=== PATIENT | female | born 1985 | race Caucasian/White ===

== ENCOUNTER 2017-10-18 08:30 | Outpatient (CLI) | payer OTHER ==
[~2017-10-18] VITALS: Ht 162.6 cm; Wt 65.3 kg
[~2017-10-18 08:30] MED LIST: ACEB200C PO; DCS100C PO; IBP600T1 PO; OXYC-12 PO; PREN1TAB39 PO
[2017-10-18] MEDS ORDERED: MULT1TAB69 PO (08:54)
[2017-10-18] MEDS ORDERED: LOSA100T28 PO (08:54)
== END 2017-10-18 09:09 ==
LOC: PREOP 08:30
PROVIDERS: ATTEND Surgery
DX: Z01.818 Encounter for other preprocedural examination (principal); K62.5 Hemorrhage of anus and rectum

== ENCOUNTER 2017-10-24 08:11 | Day surgery (SDC) | payer OTHER ==
[~2017-10-24] VITALS: Ht 162.6 cm; Wt 65.3 kg
[~2017-10-24 08:11] MED LIST changes: +LOSA100T28 PO; +MULT1TAB69 PO
--- OUTSIDE RECORDS SUMMARY | 2017-10-24 08:14 | XMS REPORT | Continuity of Care Document ---
Author Author [facility] Organization [facility] Address Unknown Phone Unavailable Allergies Active Description Code Type Severity Reaction Onset Reported/Identified Relationship to Patient Clinical Status Yes morphine [id number] Drug Allergy Unknown RASH...CAN TAKE 06/24/2010 Medications There is no data. Problems Date Dx Coded Attending Type Code Diagnosis Diagnosed By 11/30/2013 JOSE ALBERTO MONTGOMERY DO Ot 564.4 POSTOP GI FUNCT DIS NEC 11/30/2013 JOSE ALBERTO MONTGOMERY DO Ot 642.71 TOX W OLD HYPERTEN-DELIV 11/30/2013 JOSE ALBERTO MONTGOMERY DO Ot 648.91 OTH CURR COND-DELIVERED 11/30/2013 JOSE ALBERTO MONTGOMERY DO Ot 659.71 ABN DEL FET HT RT/RHYTHM,W OR W/O MENTIO 11/30/2013 JOSE ALBERTO MONTGOMERY DO Ot 663.31 CORD ENTANGLE NEC-DELIV 11/30/2013 JOSE ALBERTO MONTGOMERY DO Ot V06.1 [id number], COMBINED [ 11/30/2013 JOSE ALBERTO MONTGOMERY DO Ot V27.0 DELIVER-SINGLE LIVEBORN 11/30/2013 JOSE ALBERTO MONTGOMERY DO Ot V45.72 ACQRD ABSENCE INTESTINE - LARGE/SMALL 10/18/2017 FELISA CORTES MD Ot K62.5 HEMORRHAGE OF ANUS AND RECTUM 10/18/2017 FELISA CORTES MD Ot Z01.818 ENCOUNTER FOR OTHER PREPROCEDURAL EXAMIN 10/18/2017 FELISA CORTES MD Ot K62.5 HEMORRHAGE OF ANUS AND RECTUM 10/18/2017 FELISA CORTES MD Ot Z01.818 ENCOUNTER FOR OTHER PREPROCEDURAL EXAMIN Procedures Code Description Performed By Performed On 72.79 VACUUM EXTRACT DEL NEC 11/28/2013 Results There is no data. Encounters ACCT No. Visit Date/Time Discharge Status Pt. Type Provider Facility Loc./Unit Complaint [id number] 10/18/2017 08:30:00 10/18/2017 09:09:00 DIS Outpatient FELISA CORTES MD [facility] PREOP FLEX SIG [id number] 11/28/2013 13:52:00 11/30/2013 10:50:00 DIS Inpatient JOSE ALBERTO MONTGOMERY DO [facility] WS INDUCED HYPERTENSION [id number] 10/24/2017 09:00:00 PEN Preadmit FELISA CORTES MD [facility] ENDO RECTAL BLEEDING 04/29/20 09/21/2017 16:16:54 09/21/2017 23:59:59 CLS Outpatient Renee Singh
[2017-10-24] MEDS ORDERED: NS IV 500 ML 500 ML ONE (08:18)
[2017-10-24 08:25] VITALS: BP 122/88
[2017-10-24] MEDS ORDERED: NS IV 500 ML 500 ML IV PRN (08:27)
--- NOTE | 2017-10-24 08:40 | Conscious Sedation/ASA ---
Conscious Sedation Pre-Proced Time Reviewed: 08:39 ASA Class: 2 Airway Mallampati Classification: ([place] appropriate class) I. II. III, IV Lungs Heart ASA score ASA 1: a normal healthy patient ASA 2: a patient with a mild systemic disease (mid diabetes, controlled hypertension, obesity ASA 3: a patient with a severe systemic disease that limits activity (angina , COPD, prior Myocardial infarction) ASA 4: a patient with an incapacitating disease that is a constant threat to life (CHF, renal failure) ASA 5: a moribund patient not expected to survive 24 hrs. (ruptured aneurysm) ASA 6: a declared brain patient whose organs are being harvested. For emergent operations, add the letter E after the classification Grade 1 Sedation Plan: Discussed options with patient/fam Note The patient is an appropriate candidate to undergo the planned procedure, sedation, and anesthesia. The patient immediately re-assessed prior to indication. FELISA CORTES MD Oct 24, 2017 8:40 am
[2017-10-24] MEDS ORDERED: MIDAZOLAM 2 MG/2 ML (VERSED) VIAL ONE ×2 (08:56→08:57)
[2017-10-24] MEDS ORDERED: fentaNYL INJECTION 100 MCG/2 ML AMP ONE (08:56)
[2017-10-24] MEDS: fentaNYL INJECTION 100 MCG/2 ML AMP IVP PRN ×2 (09:03→09:06)
[2017-10-24] MEDS: MIDAZOLAM 2 MG/2 ML (VERSED) VIAL IVP PRN ×2 (09:05→09:07)
--- NOTE | 2017-10-24 09:31 | Endo Procedure Record ---
Endo Procedure Report Date of Procedure Last Colonoscopy: Yes (unsure) Oct 24, 2017 Surgeon (s) FELISA CORTES MD Post Procedure/Op Diagnosis Very small, sessile polyps in the distal small bowel, proximal to the ileorectal anastomosis Procedure Performed Flexible sigmoidoscopy with enteroscopy Hot biopsy polypectomy of small bowel polyps Description of Procedure Anesthesia Type: Conscious Sedation Specimen(s) collected/removed small bowel polyps Description of the Procedure Indication for the procedure: This lady had undergone total colectomy with ileorectal anastomosis, to manage colonic inertia about 10 years ago. I have reviewed the operative and pathology reports and there was no concerning lesion in the colon. She came in for a limited endoscopic examination of the rectum and possibly the small bowel, to investigate intermittent and infrequent rectal bleeding. Informed consent was obtained after reviewing the procedure in detail. Description of the procedure: She was placed in left lateral decubitus position and her vital signs were monitored. Conscious sedation was achieved using Versed and fentanyl. Digital rectal examination was unremarkable. The colonoscope was then introduced into the rectum and advanced past the anastomosis into the distal 30 cm of the small bowel. Findings: A very small degree of internal hemorrhoids. Multiple, sessile, diminutive polyps in the distal small bowel for about 10 cm from the ileo-rectal anastomosis. These are most likely innocuous. A few of them were excised with hot biopsy forceps. She tolerated the procedure well and was taken back to the nursing area in a stable condition. Impression: Previous total colectomy with ileorectal anastomosis. Intermittent rectal bleeding, possibly due to hemorrhoids. Incidental, diminutive small bowel polyps excised. Copies To: CHIKIS MAR XAVIER M MD Oct 24, 2017 9:31 am
--- NOTE | 2017-10-24 09:32 | Discharge Inst-Simple/Standard ---
Discharge Inst-Standard Discharge Medications New, Converted or Re-Newed RX: Other Patient Instructions/Follow Up Plan of Care/Instructions/FU: We shall call with pathology reports. To call us if there are any concerns Activity as Tolerated: Yes Discharge Diet: No Restrictions FELISA CORTES MD Oct 24, 2017 9:32 am
[2017-10-24 09:55] VITALS: BP 118/76
[2017-10-24 10:15] VITALS: BP 121/83
[2017-10-24 14:36] VITALS: BP 121/83
== END 2017-10-24 10:15 | disposition home or self-care (01) ==
LOC: ENDO 08:11
PROVIDERS: ATTEND Surgery
DX: K63.89 Other specified diseases of intestine (principal); I10 Essential (primary) hypertension
CPT/HCPCS: 84703

== ENCOUNTER 2017-10-25 10:32 | Inpatient (IN) | payer OTHER ==
[~2017-10-25] VITALS: Ht 162.6 cm; Wt 65.3 kg
[~2017-10-25 10:32] MED LIST changes: -IOHEXOL 350 MG/ML 100 ML (OMNIPAQUE 350) VIAL IV ONE; -LACTATED RINGERS 1,000 ML IV ONE; -LACTATED RINGERS 1,000 ML IV SCH; -NS 250 ML (IVPB) BAG IV ONE; -ONDANSETRON 4 MG/2 ML (SDV) Z0FRAN IVP ONE; -ONDANSETRON 4 MG/2 ML (SDV) Z0FRAN ONE; -RECEIVED CONTRAST (Hold Metformin) IV SCH; -fentaNYL INJECTION 100 MCG/2 ML AMP IVP ONE; -fentaNYL INJECTION 100 MCG/2 ML AMP ONE
--- OUTSIDE RECORDS SUMMARY | 2017-10-25 12:56 | XMS REPORT | Continuity of Care Document ---
Author Author [facility] Organization [facility] Address Unknown Phone Unavailable Allergies Active Description Code Type Severity Reaction Onset Reported/Identified Relationship to Patient Clinical Status Yes morphine [id number] Drug Allergy Unknown RASH...CAN TAKE 06/24/2010 Medications [...] 11/30/2013 JOSE ALBERTO MONTGOMERY DO Ot V06.1 [id number], COMBINED [ 11/30/2013 JOSE ALBERTO MONTGOMERY DO [...] Status Pt. Type Provider Facility Loc./Unit Complaint [id number] 10/18/2017 08:30:00 10/18/2017 09:09:00 DIS Outpatient FELISA CORTES MD [facility] PREOP FLEX SIG [id number] 11/28/2013 13:52:00 11/30/2013 10:50:00 DIS Inpatient JOSE ALBERTO MONTGOMERY DO [facility] WS INDUCED HYPERTENSION [id number] 10/24/2017 09:00:00 PEN Preadmit FELISA CORTES MD [facility] ENDO RECTAL BLEEDING 04/29/20 09/21/2017 16:16:54 09/21/2017 23:59:59 CLS Outpatient Renee Singh
[2017-10-25] MEDS ORDERED: LACTATED RINGERS 1,000 ML IV ONE (13:14)
[2017-10-25] MEDS ORDERED: NS IV 1000 ML 1,000 ML IV SCH (13:15)
[2017-10-25] MEDS ORDERED: fentaNYL INJECTION 100 MCG/2 ML AMP IVP PRN ×2 (13:15→17:00)
[2017-10-25] MEDS ORDERED: LACTATED RINGERS 1,000 ML IV SCH (13:15)
[2017-10-25] MEDS ORDERED: PROPOFOL INJECTION 50 ML IV ONE (13:27)
[2017-10-25] MEDS ORDERED: ONDANSETRON 4 MG/2 ML (SDV) Z0FRAN ONE ×2 (13:27→15:54)
[2017-10-25] MEDS ORDERED: LIDOCAINE 2% 20 ML (XYLOCAINE) VIAL ONE (13:27)
[2017-10-25] MEDS ORDERED: fentaNYL INJECTION 100 MCG/2 ML AMP ONE ×3 (13:27→16:00)
[2017-10-25] MEDS ORDERED: ROCURONIUM 10 MG/ML 5 ML SYRINGE IV ONE (13:27)
[2017-10-25] MEDS ORDERED: CATHETER FLUSH 10 ML SYR IV PRN (13:30)
[2017-10-25] MEDS ORDERED: MIDAZOLAM 2 MG/2 ML (VERSED) VIAL ONE (13:31)
--- NOTE | 2017-10-25 13:39 | History & Physicial ---
History of Present Illness History of Present Illness Reason for visit/HPI Acute onset of lower abdominal pain this am. CT shows pneumoperitoneum, possibly due to small bowel perforation Date of Admission Oct 25, 2017 at 12:52 pm Date Seen by Provider: Oct 25, 2017 Time Seen by Provider: 10:55 I consulted on this patient on 10/25/17 13:34 Attending Physician Felisa Hadley MD Admitting Physician Renee Singh DO Consult Allergies and Home Medications Allergies Coded Allergies: morphine (Verified Allergy, Unknown, RASH...CAN TAKE PERCOCET, 06/24/10) PER NURSE AVIS WING, PATIENT CAN TAKE PERCOCET Home Medications Losartan Potassium 100 Mg Tablet, 100 MG PO DAILY, (Reported) Multivitamin 1 Each Tablet, 1 EACH PO DAILY, (Reported) Patient Home Medication List Home Medication List Reviewed: Yes Past Bayrmdf-Lfxzrl-Dqlqde Hx Patient Social History Marrital Status: Employed/Student: employed Alcohol Use: Occasionally Uses Number of Drinks Today: 2 Alcohol Beverage of Choice: Beer Recreational Drug Use: No Smoking Status: Never a Smoker Physical Abuse Screen: No Sexual Abuse: No Recent Foreign Travel: No Contact w/other who traveled: No Recent Hopitalizations: No Recent Infectious Disease Expo: No Immunizations Up To Date Tetanus Booster (TDap): Unknown Pediatric: Yes Date of Influenza Vaccine: May 17, 2013 Seasonal Allergies Seasonal Allergies: Yes (mild) Surgeries Yes (Colectomy 2008, right ankle 2004, breast augmentation-2014) Bowel Surgery Respiratory No Cardiovascular Yes Hypertension Neurological No Reproductive System Hx Reproductive Disorders: No Sexually Transmitted Disease: No HIV/AIDS: No Female Reproductive Disorders: Denies Genitourinary No Gastrointestinal Yes (Colectomy 2008, rectal bleeding ) Chronic Constipation Musculoskeletal Yes (LIGAMENT REPAIR RIGHT ANKLE 2004) Endocrine History of Endocrine Disorders: No HEENT History of HEENT Disorders: No Loss of Vision: Denies Hearing Impairment: Denies Cancer No Psychosocial History of Psychiatric Problem: No Integumentary History of Skin or Integumenta: No Blood Transfusions History of Blood Disorders: No Adverse Reaction to a Blood Tr: No Family Medical History Family Hx: Alcoholism maternal grandfather Cancer maternal grandfather (LUNG CANCER PROSTATE CANCER) paternal grandmother (SKIN CANCER) paternal grandfather Cataract maternal grandmother Congestive heart failure maternal grandmother Family history: Asthma 19 FATHER (SPORTS INDUCED) G8 SISTER (SPORTS INDUCED) Family history: Hypertension 19 FATHER paternal grandfather Headache 19 MOTHER History of - respiratory disease maternal grandfather (COPD) paternal grandmother (COPD) Hypercholesterolemia 19 FATHER paternal grandmother paternal grandfather Malignant neoplasm of lung maternal grandfather Myocardial infarction paternal grandfather Prostate cancer maternal grandfather No Family History of: Abdominal aortic aneurysm Depew's disease Aphasia Cancer of colon Chest pain Congenital heart disease Cystic fibrosis Dementia Dysphagia Family history: Allergy Family history: Alzheimer's disease Family history: Arthritis Family history: Breast disease Family history: Cardiovascular disease Family history: Coronary thrombosis Family history: Diabetes mellitus Family history: Gastrointestinal disease Family history: Glaucoma Family history: Osteoporosis Family history: Thyroid disorder Hearing loss Heart disease Hereditary disease History of - anemia History of - disorder History of drug abuse Human immunodeficiency virus (HIV) seropositivity Infertile Kidney disease Parkinson's disease Psychotic disorder Seizure disorder Stroke Tuberculosis Visual impairment Constitutional: see HPI EENTM: no symptoms reported Respiratory: no symptoms reported Cardiovascular: no symptoms reported Gastrointestinal: see HPI Genitourinary: no symptoms reported Musculoskeletal: no symptoms reported Skin: no symptoms reported Psychiatric/Neurological: No Symptoms Reported Physical Exam Vital Signs Capillary Refill : General Appearance: Moderate Distress Neck: Normal Inspection Gastrointestinal: Tenderness Rectal: Deferred Extremity: Normal Inspection Neurologic/Psychiatric: Alert, Oriented x3 Skin: Warm/Dry Assessment/Plan Assessment and Plan Lady with acute abdominal pain due to perforation of hollow viscus, most likely small bowel. Requires intervention with laparoscopic approach/open if required. Discussed in detail. Problems: Admission Diagnosis Admission Status: Inpatient Order (span 2 midnights) Reason for Inpatient Admission: Being prepared for emergent surgery. Needs adequate time for post-operative recovery. Clinical Quality Measures DVT/VTE Risk/Contraindication: Risk Factor Score Per Nursin RFS Level Per Nursing on Admit: 2=Moderate FELISA HADLEY MD Oct 25, 2017 1:39 pm
--- NOTE | 2017-10-25 13:40 | Progress Note-Pre Operative ---
Pre-Operative Progress Note H&P Reviewed The H&P was reviewed, patient examined and no changes noted. Date Seen by Provider: Oct 25, 2017 Time Seen by Provider: 10:55 Date H&P Reviewed: Oct 25, 2017 Time H&P Reviewed: 13:40 Pre-Operative Diagnosis: Pneumoperitoneum FELISA CORTES MD Oct 25, 2017 1:40 pm
[2017-10-25] MEDS ORDERED: ceFAZolin INJECTION 1,000 MG in NS (IVPB) 100 ML IV ONE (13:45)
[2017-10-25] MEDS ORDERED: metroNIDAZOLE 500MG/100ML IVPB 100 ML IV ONE (13:45)
[2017-10-25 13:52] LABS: BASOPHILS % (AUTO) 0 % (0-10); EOSINOPHILS % (AUTO) 0 % (0-10); HEMATOCRIT 38 % (35-52); HEMOGLOBIN 13.2 G/DL (11.5-16.0); LYMPHOCYTES # (AUTO) 0.6 X 10^3 (1.0-4.0); LYMPHOCYTES % (AUTO) 9 % (12-44); MEAN CORPUSCULAR HEMOGLOBIN 30 PG (25-34); MEAN CORPUSCULAR HGB CONC 35 G/DL (32-36); MEAN CORPUSCULAR VOLUME 88 FL (80-99); MEAN PLATELET VOLUME 9.3 FL (7.4-10.4); MONOCYTES # (AUTO) 0.3 X 10^3 (0.0-1.0); MONOCYTES % (AUTO) 4 % (0-12); NEUTROPHILS # (AUTO) 5.8 X 10^3 (1.8-7.8); NEUTROPHILS % (AUTO) 87 % (42-75); PLATELET COUNT 185 10^3/uL (130-400); RED BLOOD COUNT 4.34 10^6/uL (4.35-5.85); RED CELL DISTRIBUTION WIDTH 12.6 % (10.0-14.5); WHITE BLOOD COUNT 6.7 10^3/uL (4.3-11.0)
[2017-10-25] MEDS ORDERED: LACTATED RINGERS 1,000 ML IV PRN ×3 (13:53→16:27)
[2017-10-25] MEDS: LACTATED RINGERS 1,000 ML IV PRN ×5 (13:55→15:39)
[2017-10-25] MEDS ORDERED: BUP/EPI 0.5% 1:200,000 (SENSORCAINE) 30 ML VIAL ONE (13:56)
[2017-10-25] MEDS ORDERED: SCOPOLAMINE 1.5 MG (TRANSDERM-SCOP) PATCH TD ONE (14:00)
[2017-10-25] MEDS ORDERED: ONDANSETRON 4 MG/2 ML (SDV) Z0FRAN IV ONE (14:00)
[2017-10-25] MEDS ORDERED: FAMOTIDINE 20MG/2ML IV (PEPCID) IV ONE (14:00)
[2017-10-25 14:10] LABS: BAND NEUTROPHILS 16 %; BASOPHILS % (MANUAL) 0 %; BUN/CREATININE RATIO 11; CALCIUM 8.9 MG/DL (8.5-10.1); CARBON DIOXIDE 27 MMOL/L (21-32); CHLORIDE 105 MMOL/L (98-107); CREATININE SERUM 0.76 MG/DL (0.60-1.30); EOSINOPHILS % (MANUAL) 0 %; GFR ESTIMATED > 60; GLUCOSE 98 MG/DL (70-105); LYMPHOCYTES % (MANUAL) 13 %; MONOCYTES % (MANUAL) 10 %; NEUTROPHILS % (MANUAL) 61 %; POTASSIUM 3.7 MMOL/L (3.6-5.0); RBC MORPH NORMAL; SODIUM 136 MMOL/L (135-145)
[2017-10-25] MEDS ORDERED: PHENYLEPHRINE 100 MCG/ML 10 ML (ANESTHESIA) SYR ONE (14:26)
[2017-10-25] MEDS ORDERED: morphine INJ 10 MG/ML 1ML (SYR OR VIAL) ONE (15:17)
[2017-10-25] MEDS ORDERED: SEVOFLURANE (ULTANE) 15 ML INHAL SOLN ONE ×3 (15:49→17:01)
[2017-10-25] MEDS ORDERED: SUCCINYLCHOLINE INJ 100 MG/5 ML SYR ONE (15:50)
[2017-10-25] MEDS ORDERED: GLYCOPYRROLATE 0.2 MG/ML (ROBINUL) 2 ML VIAL ONE (15:52)
[2017-10-25] MEDS ORDERED: HYDROmorphone 2 MG/ML VIAL (DILAUDID) ONE (15:52)
[2017-10-25] MEDS ORDERED: NEOSTIGMINE 1 MG/ML 5 ML SYRINGE ONE (15:52)
--- NOTE | 2017-10-25 16:26 | Operative Report ---
Operative Report Date of Procedure/Surgery Oct 25, 2017 Surgeon (s) FELISA CORTES MD Vegetable Farmer (s): N/A Post-Operative Diagnosis Perforation of distal small bowel, 10 cm proximal to the ileorectal anastomosis with enteric contamination Procedure Performed Laparoscopic repair of small bowel perforation Description of Procedure Anesthesia Type: General Estimated blood loss (mL): Minimal Specimen(s) collected/removed None Description of the Procedure Indication for the procedure: This lady presented with an acute abdomen with pneumoperitoneum due to iatrogenic perforation of the small bowel, resulting from endoscopic polypectomy, performed 24 hours ago. She was offered diagnostic laparoscopy to confirm the diagnosis and possibly repair the perforation. Informed consent was obtained after reviewing the operative details and complications of postoperative wound infection, intra-abdominal abscess the potential for conversion to open laparotomy. Description of the procedure: She was placed supine on the operative table and general anesthesia induced using an endotracheal tube. A gram of Ancef and 500 mg of Flagyl were administered intravenously as prophylaxis against wound infection. Sequential compression devices were placed around her legs, to minimize the risk of venous thrombosis. A Santiago catheter was placed to monitor urine output during the perioperative period. Abdomen was prepared and draped in the usual sterile manner. A supraumbilical incision was made and the linea alba incised vertically. A Parada cannula was placed and carbon dioxide insufflated, to an intra-abdominal pressure of 15 mmHg. Anatomy was visualized using the conventional, 30 laparoscope. Enteric contents were found all over the abdomen. In addition, there were some flakes around the right lower quadrant involving the small bowel. Under direct view, I placed an 8 mm trocar over each side of the abdomen , followed by a 12 mm trocar over the left upper quadrant, to facilitate passing the suture into the peritoneal cavity. Enteric contents were suctioned and the small bowel was examined in a retrograde fashion, commencing from the anastomosis in the pelvis. A full- thickness perforation about 2 mm in diameter was found along the distal small bowel, 10 cm proximal to the anastomosis. It was repaired using a first layer of 20V LOC suture and a second layer of Lembert suture with 0 silk.. A 3 cm Pfannenstiel incision was made to facilitate placing a gel point device for wound protection and exteriorize the involved segment of the small bowel with perforation, for satisfactory repair. The rest of the small bowel was examined and found to be intact. The repaired segment was returned back to the peritoneal cavity and pneumoperitoneum reestablished. Abdominal cavity was thoroughly irrigated with 6 L of warm saline. With regard to the Pfannenstiel incision, peritoneum was closed using 3-0 PDS and the fascia with #1 Prolene. Subcutaneous tissue was approximated with 3-0 Vicryl and skin using 4-0 Vicryl, in a subcuticular fashion. The fascia over the supraumbilical incision and the one over the left upper quadrant were closed with #1 Vicryl. Skin incisions were closed using 4-0 Vicryl, in a subcuticular fashion. 0.5 percent Marcaine with epinephrine was infiltrated along the incisions, both pre-preemptively and at the conclusion of the operation She tolerated the procedure well, was extubated in the operating room and taken to the recovery room in a stable condition. Findings of the Procedure See op report Allergies and Home Medications Allergies Coded Allergies: morphine (Verified Allergy, Unknown, RASH...CAN TAKE PERCOCET, 06/24/10) PER NURSE AVIS WING, PATIENT CAN TAKE PERCOCET Home Medications Losartan Potassium 100 Mg Tablet, 100 MG PO DAILY, (Reported) Patient Home Medication List Home Medication List Reviewed: Yes FELISA CORTES MD Oct 25, 2017 4:26 pm
[2017-10-25] MEDS ORDERED: PIPERACILLIN SODIUM/TAZOBACTAM 4.5 GM in NS (IVPB) 100 ML IV SCH (16:30)
[2017-10-25] MEDS ORDERED: metroNIDAZOLE 500MG/100ML IVPB 100 ML IV SCH (16:30)
[2017-10-25] MEDS ORDERED: PIPERACILLIN SODIUM/TAZOBACTAM 4.5 GM in NS (IVPB) 100 ML IV NR (16:45)
[2017-10-25] MEDS ORDERED: HYDROmorphone 2 MG/ML VIAL (DILAUDID) IVP PRN (17:00)
[2017-10-25] MEDS ORDERED: MEPERIDINE (DEMEROL) INJ 50 MG/ML IVP PRN (17:00)
[2017-10-25] MEDS ORDERED: ONDANSETRON 4 MG/2 ML (SDV) Z0FRAN IVP PRN (17:00)
[2017-10-25] MEDS ORDERED: PROMETHAZINE INJ 25 MG/ML (PHENERGAN) AMP IVP PRN (17:00)
[2017-10-25] MEDS: LACTATED RINGERS 1,000 ML IV SCH ×2 (17:05→18:03)
[2017-10-25 17:50] VITALS: BP 116/71
[2017-10-25 19:05] VITALS: BP 120/74
[2017-10-25] MEDS: metroNIDAZOLE 500MG/100ML IVPB 100 ML IV SCH (21:45)
[2017-10-25] MEDS: fentaNYL INJECTION 100 MCG/2 ML AMP IV PRN (22:26)
[2017-10-25] MEDS: PIPERACILLIN SODIUM/TAZOBACTAM 4.5 GM in NS (IVPB) 100 ML IV SCH (23:18)
[2017-10-26 00:07] VITALS: BP 113/67
[2017-10-26] MEDS: LACTATED RINGERS 1,000 ML IV SCH (03:07)
[2017-10-26 04:41] VITALS: BP 107/65
[2017-10-26] MEDS: metroNIDAZOLE 500MG/100ML IVPB 100 ML IV SCH (05:10)
[2017-10-26 05:53] LABS: BASOPHILS % (AUTO) 0 % (0-10); EOSINOPHILS % (AUTO) 0 % (0-10); HEMATOCRIT 33 % (35-52); HEMOGLOBIN 11.1 G/DL (11.5-16.0); LYMPHOCYTES # (AUTO) 0.7 X 10^3 (1.0-4.0); LYMPHOCYTES % (AUTO) 7 % (12-44); MEAN CORPUSCULAR HEMOGLOBIN 30 PG (25-34); MEAN CORPUSCULAR HGB CONC 34 G/DL (32-36); MEAN CORPUSCULAR VOLUME 89 FL (80-99); MEAN PLATELET VOLUME 9.8 FL (7.4-10.4); MONOCYTES # (AUTO) 0.4 X 10^3 (0.0-1.0); MONOCYTES % (AUTO) 4 % (0-12); NEUTROPHILS # (AUTO) 8.6 X 10^3 (1.8-7.8); NEUTROPHILS % (AUTO) 89 % (42-75); PLATELET COUNT 166 10^3/uL (130-400); RED BLOOD COUNT 3.69 10^6/uL (4.35-5.85); RED CELL DISTRIBUTION WIDTH 12.7 % (10.0-14.5); WHITE BLOOD COUNT 9.7 10^3/uL (4.3-11.0)
[2017-10-26 06:05] LABS: BUN/CREATININE RATIO 10; CALCIUM 8.7 MG/DL (8.5-10.1); CARBON DIOXIDE 22 MMOL/L (21-32); CHLORIDE 107 MMOL/L (98-107); CREATININE SERUM 0.93 MG/DL (0.60-1.30); GFR ESTIMATED > 60; GLUCOSE 133 MG/DL (70-105); SODIUM 138 MMOL/L (135-145)
[2017-10-26] MEDS: PIPERACILLIN SODIUM/TAZOBACTAM 4.5 GM in NS (IVPB) 100 ML IV SCH ×3 (06:24→22:43)
--- NOTE | 2017-10-26 07:20 | Anesthesia-General Post-Op ---
General Patient Condition Mental Status/LOC: Same as Preop Cardiovascular: Satisfactory Nausea/Vomiting: Absent Respiratory: Satisfactory Pain: Controlled Complications: Absent Post Op Complications Complications None Follow Up Care/Instructions Patient Instructions None needed. Anesthesia/Patient Condition Patient Condition Patient is doing well, no complaints, stable vital signs, no apparent adverse anesthesia problems. No complications reported per nursing. BIBI TOLENTINO CRNA Oct 26, 2017 07:20
[2017-10-26 08:00] VITALS: BP 114/68
[2017-10-26] MEDS: fentaNYL INJECTION 100 MCG/2 ML AMP IV PRN ×3 (08:51→19:49)
--- NOTE | 2017-10-26 11:33 | Progress Note-Standard ---
Standard Progress Note Progress Notes/Assess & Plan Date Seen by Provider: Oct 26, 2017 Time Seen by Provider: 11:32 Progress/Assessment & Plan Uneventful night. Findings at surgery, intervention details etc. disclosed with the patient. Afebrile and vital signs are stable. Pain control adequate. Passed flatus last night. Incisions dry. That could be advanced and she be discharged soon. Final Diagnosis Post polypectomy small bowel perforation FELISA CORTES MD Oct 26, 2017 11:33
[2017-10-26 11:51] VITALS: BP 105/60
[2017-10-26 15:30] VITALS: BP 132/68
[2017-10-26] MEDS: ENOXAPARIN 40 MG/0.4 ML (LOVENOX) SYR SC SCH (17:11)
--- NOTE | 2017-10-26 18:55 | Consultation ---
History of Present Illness History of Present Illness Patient Consulted On(gina/time) 10/26/17 18:50 Date Seen by Provider: Oct 26, 2017 Time Seen by Provider: 12:45 History of Present Illness This is a 32 year old female with a history of total colectomy who underwent a limited flexible sigmoidoscopy by Dr. Hadley on yesterday due to rectal bleeding. She was found to have polyps which were biopsied and cauterized. However, she sustained a small bowel perforation during one of the polypectomies and had to undergo laparoscopic repair. I am asked to consult for medical management. Allergies and Home Medications Allergies Coded Allergies: morphine (Verified Allergy, Unknown, RASH...CAN TAKE PERCOCET, 06/24/10) PER NURSE AVIS WING, PATIENT CAN TAKE PERCOCET Home Medications Losartan Potassium 100 Mg Tablet, 100 MG PO DAILY, (Reported) Patient Home Medication List Home Medication List Reviewed: Yes Past Kaxhsol-Efszpa-Qvgloc Hx Patient Social History Alcohol Use: Occasionally Uses Number of Drinks Today: 2 Alcohol Beverage of Choice: Beer Recreational Drug Use: No Smoking Status: Never a Smoker Recent Foreign Travel: No Contact w/Someone Who Travel: No Recent Infectious Disease Expo: No Recent Hopitalizations: No Immunizations Up To Date Tetanus Booster (TDap): Unknown PED Vaccines UTD: Yes Date of Influenza Vaccine: May 17, 2013 Seasonal Allergies Seasonal Allergies: Yes (mild) Past Medical History Surgeries: Yes (Colectomy 2008, right ankle 2004, breast augmentation-2014) Bowel Surgery Respiratory: No Asthma Cardiac: Yes Hypertension Neurological: No Reproductive Disorders: No Female Reproductive Disorders: Denies Sexually Transmitted Disease: No HIV/AIDS: No Genitourinary: No Gastrointestinal: Yes (Colectomy 2008, rectal bleeding ) Chronic Constipation Musculoskeletal: Yes (LIGAMENT REPAIR RIGHT ANKLE 2004) Endocrine: No HEENT: No Loss of Vision: Denies Hearing Impairment: Denies Cancer: No Psychosocial: No Integumentary: No Blood Disorders: No Adverse Reaction/Blood Tranf: No Family Medical History Alcoholism maternal grandfather Cancer maternal grandfather (LUNG CANCER PROSTATE CANCER) paternal grandmother (SKIN CANCER) paternal grandfather Cataract maternal grandmother Congestive heart failure maternal grandmother Family history: Asthma 19 FATHER (SPORTS INDUCED) G8 SISTER (SPORTS INDUCED) Family history: Hypertension 19 FATHER paternal grandfather Headache 19 MOTHER History of - respiratory disease maternal grandfather (COPD) paternal grandmother (COPD) Hypercholesterolemia 19 FATHER paternal grandmother paternal grandfather Malignant neoplasm of lung maternal grandfather Myocardial infarction paternal grandfather Prostate cancer maternal grandfather No Family History of: Abdominal aortic aneurysm Clinton's disease Aphasia Cancer of colon Chest pain Congenital heart disease Cystic fibrosis Dementia Dysphagia Family history: Allergy Family history: Alzheimer's disease Family history: Arthritis Family history: Breast disease Family history: Cardiovascular disease Family history: Coronary thrombosis Family history: Diabetes mellitus Family history: Gastrointestinal disease Family history: Glaucoma Family history: Osteoporosis Family history: Thyroid disorder Hearing loss Heart disease Hereditary disease History of - anemia History of - disorder History of drug abuse Human immunodeficiency virus (HIV) seropositivity Infertile Kidney disease Parkinson's disease Psychotic disorder Seizure disorder Stroke Tuberculosis Visual impairment Review of Systems-General Constitutional: weakness EENTM: No see HPI, No no symptoms reported, No ear discharge, No hearing loss, No ear pain, No blurred vision, No double vision, No eye pain, No tearing, No vision loss, No dental problems, No hoarseness, No mouth pain, No mouth swelling , No epistaxis, No nose congestion, No nose pain, No throat pain, No throat swelling, No other Respiratory: No no symptoms reported, No see HPI, No cough, No dyspnea on exertion, No hemoptysis, No orthopnea, No phlegm, No short of breath, No stridor , No wheezing, No other Cardiovascular: No no symptoms reported, No see HPI, No chest pain, No edema, No Hx of Intervention, No palpitations, No syncope, No vascular heart diseas, No other Gastrointestinal: abdominal pain Genitourinary: No no symptoms reported, No see HPI, No decreased output, No discharge, No dysuria, No frequency, No hematuria, No hesitancy, No incontinence , No nocturia, No pain, No other Musculoskeletal: No no symptoms reported, No see HPI, No back pain, No gout, No joint pain, No joint swelling, No muscle pain, No muscle stiffness, No muscle cramps, No muscle twitching, No muscle weakness, No neck pain, No other Skin: No no symptoms reported, No see HPI, No change in color, No change in hair/nails, No dryness, No hx of skin cancer, No lesions, No lumps, No pruritus , No rash, No other Psychiatric/Neurological: Denies No Symptoms Reported, Denies See HPI, Denies Anxiety, Denies Depressed, Denies Emotional Problems, Denies Headache, Denies Numbness, Denies Paresthesia, Denies Pre-Existing Deficit, Denies Seizure, Denies Tingling, Denies Tremors, Denies Weakness, Denies Other Physical Exam-General Problems Physical Exam Vital Signs Vital Signs - First Documented 10/25/17 10/25/17 17:50 21:16 Temp 98.7 Pulse 84 Resp 18 B/P (MAP) 116/71 (86) Pulse Ox 93 O2 Delivery Room Air Capillary Refill : General Appearance: mild distress HEENT: normal ENT inspection Neck: supple Respiratory: lungs clear Cardiovascular: regular rate, rhythm Gastrointestinal: normal bowel sounds, soft, tenderness (mild) Rectal: deferred Back: no CVA tenderness Extremities: normal inspection, no pedal edema, no calf tenderness Neurologic/Psychiatric: alert, oriented x 3 Skin: warm/dry Comments Laboratory Tests 10/26/17 05:35: White Blood Count 9.7, Red Blood Count 3.69L, Hemoglobin 11.1L, Hematocrit 33L, Mean Corpuscular Volume 89, Mean Corpuscular Hemoglobin 30, Mean Corpuscular Hemoglobin Concent 34, Red Cell Distribution Width 12.7, Platelet Count 166, Mean Platelet Volume 9.8, Neutrophils (%) (Auto) 89H, Lymphocytes (%) (Auto) 7L , Monocytes (%) (Auto) 4, Eosinophils (%) (Auto) 0, Basophils (%) (Auto) 0, Neutrophils # (Auto) 8.6H, Lymphocytes # (Auto) 0.7L, Monocytes # (Auto) 0.4, Eosinophils # (Auto) 0.0, Basophils # (Auto) 0.0, Sodium Level 138, Potassium Level 4.0, Chloride Level 107, Carbon Dioxide Level 22, Anion Gap 9, Blood Urea Nitrogen 9, Creatinine 0.93, Estimat Glomerular Filtration Rate > 60, BUN/ Creatinine Ratio 10, Glucose Level 133H, Calcium Level 8.7 Assessment/Plan Assessment/Plan Admission Diagnosis/Plan 1. Acute Small Bowel Perforation from polypectomy during limited flexible sigmoidoscopy--surgery managing, pain under control and diet advanced today Clinical Quality Measures DVT/VTE Risk/Contraindication: Risk Factor Score Per Nursin RFS Level Per Nursing on Admit: 2=Moderate CHIKIS MAR DO Oct 26, 2017 6:55 pm
[2017-10-26 19:30] VITALS: BP 123/74
[2017-10-26] MEDS: ACETAMINOPHEN 325 MG TABLET PO PRN (19:50)
[2017-10-27 00:37] VITALS: BP 119/73
[2017-10-27] MEDS: fentaNYL INJECTION 100 MCG/2 ML AMP IV PRN ×3 (02:36→09:17)
[2017-10-27 03:52] VITALS: BP 117/66
[2017-10-27] MEDS: ACETAMINOPHEN 325 MG TABLET PO PRN (04:00)
[2017-10-27] MEDS ORDERED: NS (IVPB) 100 ML ONE (06:10)
[2017-10-27] MEDS ORDERED: MEROPENEM 500 MG VIAL (MERREM) IV ONE (06:10)
[2017-10-27] MEDS: MEROPENEM 500 MG in NS (IVPB) 100 ML IV SCH ×4 (06:23→23:51)
[2017-10-27 08:00] VITALS: BP 117/72
[2017-10-27] MEDS ORDERED: ENOXAPARIN 40 MG/0.4 ML (LOVENOX) SYR SC SCH (10:30)
--- NOTE | 2017-10-27 10:30 | Progress Note-Standard ---
Standard Progress Note Progress Notes/Assess & Plan Date Seen by Provider: Oct 27, 2017 Time Seen by Provider: 07:40 Progress/Assessment & Plan Uneventful night. Findings at surgery, intervention details etc. disclosed with the patient. Afebrile and vital signs are stable. Pain control adequate. Passed flatus last night. Incisions dry. That could be advanced and she be discharged soon. 10/27/17:temperature spike to 101.8 last night. Feels warm. Current temperature 99.7. Having diarrhea and passing flatus. Mild abdominal distention. Incisions dry. Antibiotics changed to imipenem to have better coverage. I have had a thorough discussion about the aftereffects of peritonitis, highlighting the possibility of postoperative intra-abdominal/pelvic abscess. I also indicated that and even is less likely to be identified this early during the postoperative period. I have indicated my intention to watch her closely, follow her fever pattern, and obtain a CT scan, should the concern for intra-abdominal abscess increase. Final Diagnosis iatrogenic small bowel perforation following endoscopic polypectomy FELISA CORTES MD Oct 27, 2017 10:30 am
[2017-10-27 12:00] VITALS: BP 131/79
[2017-10-27] MEDS: IBUPROFEN TABLET 200 MG TAB PO PRN ×2 (12:24→20:02)
[2017-10-27] MEDS: HYDROcodone/APAP 5 MG/325 MG (LORTAB) TAB PO PRN ×2 (13:01→20:00)
[2017-10-27 14:26] LABS: BASOPHILS % (AUTO) 0 % (0-10); EOSINOPHILS % (AUTO) 0 % (0-10); HEMATOCRIT 35 % (35-52); LYMPHOCYTES # (AUTO) 0.7 X 10^3 (1.0-4.0); LYMPHOCYTES % (AUTO) 7 % (12-44); MEAN CORPUSCULAR HEMOGLOBIN 31 PG (25-34); MEAN CORPUSCULAR HGB CONC 34 G/DL (32-36); MEAN CORPUSCULAR VOLUME 89 FL (80-99); MEAN PLATELET VOLUME 9.8 FL (7.4-10.4); MONOCYTES # (AUTO) 0.3 X 10^3 (0.0-1.0); MONOCYTES % (AUTO) 3 % (0-12); NEUTROPHILS # (AUTO) 9.3 X 10^3 (1.8-7.8); NEUTROPHILS % (AUTO) 90 % (42-75); PLATELET COUNT 179 10^3/uL (130-400); RED BLOOD COUNT 3.93 10^6/uL (4.35-5.85); RED CELL DISTRIBUTION WIDTH 12.7 % (10.0-14.5); WHITE BLOOD COUNT 10.3 10^3/uL (4.3-11.0)
[2017-10-27 14:48] LABS: ALANINE AMINOTRANSFERASE 20 U/L (0-55); ALBUMIN 3.6 GM/DL (3.2-4.5); ALKALINE PHOSPHATASE 46 U/L (40-136); BILIRUBIN,TOTAL 0.8 MG/DL (0.1-1.0); BUN/CREATININE RATIO 9; CALCIUM 9.5 MG/DL (8.5-10.1); CARBON DIOXIDE 22 MMOL/L (21-32); CHLORIDE 105 MMOL/L (98-107); CREATININE SERUM 0.78 MG/DL (0.60-1.30); GFR ESTIMATED > 60; GLUCOSE 113 MG/DL (70-105); POTASSIUM 3.7 MMOL/L (3.6-5.0); SODIUM 135 MMOL/L (135-145)
[2017-10-27 14:59] LABS: BAND NEUTROPHILS 7 %; BASOPHILS % (MANUAL) 0 %; EOSINOPHILS % (MANUAL) 0 %; LYMPHOCYTES % (MANUAL) 8 %; MONOCYTES % (MANUAL) 0 %; NEUTROPHILS % (MANUAL) 85 %
[2017-10-27 15:00] LABS: RBC MORPH NORMAL
[2017-10-27 15:15] LABS: BILIRUBIN,URINE NEGATIVE (NEGATIVE); CLARITY,URINE CLEAR; COLOR,URINE YELLOW; GLUCOSE, URINE (UA) NEGATIVE (NEGATIVE); KETONES,URINE 2+ (NEGATIVE); LEUKOCYTE ESTERASE ,URINE 1+ (NEGATIVE); NITRITE,URINE NEGATIVE (NEGATIVE); PH,URINE 6 (5-9); PROTEIN,URINE 3+ (NEGATIVE); UROBILINOGEN,URINE NORMAL (NORMAL)
--- NOTE | 2017-10-27 15:34 | Diagnostic Imaging Report ---
Indication: Postop abdomen. Fever. Cough. Comparison: CT dated 10/25/2017 Findings: Single frontal radiographic view of the chest was obtained and demonstrates small bibasilar effusions and associated patchy bibasilar airspace disease. No pneumothorax is seen on either side. Cardiac silhouette and pulmonary vasculature are within normal limits. Note is made of pneumoperitoneum. Multiple air-fluid levels are also seen within the included portions of the bowel loops. Bony structures show no gross acute abnormalities. Impression: 1. Pneumoperitoneum. Please note, this was noted on previous CT abdomen dated 10/25/2017. 2. Small bibasilar effusions with probable bibasilar atelectasis. 3. Multiple air-fluid levels within the included loops of small bowel in left upper abdominal quadrant concerning for postoperative ileus or potential small bowel obstruction. Dictated by: Dictated on workstation # [id number]
[2017-10-27 15:43] LABS: RBC,URINE 0-2 /HPF; WBC,URINE RARE /HPF
[2017-10-27 15:44] LABS: BACTERIA,URINE TRACE /HPF
[2017-10-27 16:00] VITALS: BP 126/74
[2017-10-27] MEDS: ENOXAPARIN 40 MG/0.4 ML (LOVENOX) SYR SC SCH (17:13)
[2017-10-27 19:17] VITALS: BP 127/80
[2017-10-27] MEDS: METOCLOPRAMIDE INJ 10 MG/2 ML (REGLAN) IVP SCH (21:17)
--- NOTE | 2017-10-27 22:53 | Progress Note (SOAP) ---
Subjective Date Seen by Provider: Oct 27, 2017 Time Seen by Provider: 12:35 Subjective/Events-last exam Fwup small bowel perforation from polypectomy. Running fever. Frequent loose stools. Objective Exam Vital Signs Date Time Temp Pulse Resp B/P (MAP) Pulse Ox O2 Delivery O2 Flow Rate FiO2 10/27/17 21:15 98.6 10/27/17 20:02 100.1 10/27/17 19:17 100.7 112 20 127/80 (96) 95 Room Air 10/27/17 16:00 99.5 113 20 126/74 (91) 96 Room Air 10/27/17 14:34 101.7 10/27/17 13:45 102.2 10/27/17 12:00 101.2 119 16 131/79 (96) 96 Room Air 10/27/17 08:00 99.3 107 16 117/72 (87) 95 Room Air 10/27/17 06:19 99.8 10/27/17 04:00 99.2 10/27/17 04:00 100.7 10/27/17 04:00 100.0 10/27/17 03:52 98.8 110 17 117/66 (83) 94 Room Air 10/27/17 03:30 100.0 10/27/17 02:43 97.9 10/27/17 00:37 100.5 116 18 119/73 (88) 93 Room Air 10/26/17 22:53 100.5 I & O 10/27/17 07:00 Intake Total 2760 ml Output Total 2000 ml Balance 760 ml Capillary Refill : General Appearance: Mild Distress Neck: Supple Respiratory: Lungs Clear, Decreased Breath Sounds Cardiovascular: Regular Rate, Rhythm Gastrointestinal: normal bowel sounds, soft, tenderness Extremity: Non Tender, No Calf Tenderness, No Pedal Edema Neurologic/Psychiatric: Alert, Oriented x3 Results Lab Laboratory Tests 10/27/17 14:09: White Blood Count 10.3, Red Blood Count 3.93L, Hemoglobin 12.0, Hematocrit 35, Mean Corpuscular Volume 89, Mean Corpuscular Hemoglobin 31, Mean Corpuscular Hemoglobin Concent 34, Red Cell Distribution Width 12.7, Platelet Count 179, Mean Platelet Volume 9.8, Neutrophils (%) (Auto) 90H, Lymphocytes (%) (Auto) 7L , Monocytes (%) (Auto) 3, Eosinophils (%) (Auto) 0, Basophils (%) (Auto) 0, Neutrophils # (Auto) 9.3H, Lymphocytes # (Auto) 0.7L, Monocytes # (Auto) 0.3, Eosinophils # (Auto) 0.0, Basophils # (Auto) 0.0, Neutrophils % (Manual) 85, Lymphocytes % (Manual) 8, Monocytes % (Manual) 0, Eosinophils % (Manual) 0, Basophils % (Manual) 0, Band Neutrophils 7, Blood Morphology Comment NORMAL, Sodium Level 135, Potassium Level 3.7, Chloride Level 105, Carbon Dioxide Level 22, Anion Gap 8, Blood Urea Nitrogen 7, Creatinine 0.78, Estimat Glomerular Filtration Rate > 60, BUN/Creatinine Ratio 9, Glucose Level 113H, Calcium Level 9.5, Total Bilirubin 0.8, Aspartate Amino Transf (AST/SGOT) 20, Alanine Aminotransferase (ALT/SGPT) 20, Alkaline Phosphatase 46, Total Protein 7.0, Albumin 3.6 10/27/17 15:00: Urine Color YELLOW, Urine Clarity CLEAR, Urine pH 6, Urine Specific [place] 1.015L, Urine Protein 3+H, Urine Glucose (UA) NEGATIVE, Urine Ketones 2+H, Urine Nitrite NEGATIVE, Urine Bilirubin NEGATIVE, Urine Urobilinogen NORMAL, Urine Leukocyte Esterase 1+H, Urine RBC (Auto) 3+H, Urine RBC 0-2, Urine WBC RARE, Urine Squamous Epithelial Cells 5-10, Urine Crystals NONE, Urine Bacteria TRACE, Urine Casts NONE, Urine Mucus NEGATIVE, Urine Culture Indicated NO Microbiology 10/27/17 C. difficile GDH Antigen & Toxins - Final, Complete Assessment/Plan Assessment/Plan Assess & Plan/Chief Complaint 1. Acute Small Bowel Perforation from polypectomy during limited flexible sigmoidoscopy--passing gas and frequent loose stools 2. Fever--check lab, CXR, UA, blood cx, stool for C. Diff Clinical Quality Measures DVT/VTE Risk/Contraindication: Risk Factor Score Per Nursin RFS Level Per Nursing on Admit: 2=Moderate CHIKIS MAR DO Oct 27, 2017 10:53 pm
[2017-10-28] VITALS: BP 115/69
[2017-10-28] MEDS: METOCLOPRAMIDE INJ 10 MG/2 ML (REGLAN) IVP SCH ×3 (02:41→11:27)
[2017-10-28 04:00] VITALS: BP 119/62
[2017-10-28] MEDS: HYDROcodone/APAP 5 MG/325 MG (LORTAB) TAB PO PRN ×2 (05:12→13:16)
[2017-10-28] MEDS: MEROPENEM 500 MG in NS (IVPB) 100 ML IV SCH ×2 (05:13→12:01)
[2017-10-28 08:00] VITALS: BP 116/73
[2017-10-28] MEDS ORDERED: ACHD5005 PO (09:56)
[2017-10-28] MEDS ORDERED: CEFD300C3 PO (09:57)
[2017-10-28] MEDS ORDERED: METR500T PO (09:58)
--- NOTE | 2017-10-28 10:00 | Discharge Inst-Simple/Standard ---
Discharge Inst-Standard Discharge Medications New, Converted or Re-Newed RX: RX on Chart Patient Instructions/Follow Up Plan of Care/Instructions/FU: My office staff and I would call her and review her progress. To call my cellphone (I've provided to them) if she has any concerns over nader weekend Activity as Tolerated: Yes Discharge Diet: No Restrictions FELISA CORTES MD Oct 28, 2017 10:00 am
--- NOTE | 2017-10-28 10:10 | Discharge Summary ---
Diagnosis/Chief Complaint Date of Admission Oct 25, 2017 at 12:52 pm Date of Discharge 10/28/17 Discharge Date: Oct 28, 2017 Discharge Time: 13:00 Admission Diagnosis Admission Diagnosis Iatrogenic small bowel perforation Discharge Diagnosis Same Reason Hospital Visit Acute onset of lower abdominal pain this am. CT shows pneumoperitoneum, possibly due to small bowel perforation. Confirmed and repaired using laparoscopic approach. On IV antibiotics. Potential for intra-abdominal abscess discussed explicitly. Will go home on omnicef and flagyl to conver gram negative bacteria and anerobes. Patient and family appear to have comprehended the anticipated outcome, management of an intra-abdominal abscess, should it develop and I feel comfortable to discharge her. Discharge Summary Procedures Laparoscopic repair of small bowel perforation Consultations Dr. Singh for medical management Discharge Physical Examination Allergies: Coded Allergies: morphine (Verified Allergy, Unknown, RASH...CAN TAKE PERCOCET, 06/24/10) PER NURSE AVIS WING, PATIENT CAN TAKE PERCOCET Vitals & I&Os Vital Signs Date Time Temp Pulse Resp B/P (MAP) Pulse Ox O2 Delivery O2 Flow Rate FiO2 10/28/17 08:00 99.3 107 18 116/73 (87) 97 Room Air Hospital Course Labs (last 24 hrs) Laboratory Tests 10/25/17 13:45: White Blood Count 6.7, Red Blood Count 4.34L, Hemoglobin 13.2, Hematocrit 38, Mean Corpuscular Volume 88, Mean Corpuscular Hemoglobin 30, Mean Corpuscular Hemoglobin Concent 35, Red Cell Distribution Width 12.6, Platelet Count 185, Mean Platelet Volume 9.3, Neutrophils (%) (Auto) 87H, Lymphocytes (%) (Auto) 9L , Monocytes (%) (Auto) 4, Eosinophils (%) (Auto) 0, Basophils (%) (Auto) 0, Neutrophils # (Auto) 5.8, Lymphocytes # (Auto) 0.6L, Monocytes # (Auto) 0.3, Eosinophils # (Auto) 0.0, Basophils # (Auto) 0.0, Neutrophils % (Manual) 61, Lymphocytes % (Manual) 13, Monocytes % (Manual) 10, Eosinophils % (Manual) 0, Basophils % (Manual) 0, Band Neutrophils 16, Blood Morphology Comment NORMAL, Sodium Level 136, Potassium Level 3.7, Chloride Level 105, Carbon Dioxide Level 27, Anion Gap 4L, Blood Urea Nitrogen 8, Creatinine 0.76, Estimat Glomerular Filtration Rate > 60, BUN/Creatinine Ratio 11, Glucose Level 98, Calcium Level 8.9 10/26/17 05:35: White Blood Count 9.7, Red Blood Count 3.69L, Hemoglobin 11.1L, Hematocrit 33L, Mean Corpuscular Volume 89, Mean Corpuscular Hemoglobin 30, Mean Corpuscular Hemoglobin Concent 34, Red Cell Distribution Width 12.7, Platelet Count 166, Mean Platelet Volume 9.8, Neutrophils (%) (Auto) 89H, Lymphocytes (%) (Auto) 7L , Monocytes (%) (Auto) 4, Eosinophils (%) (Auto) 0, Basophils (%) (Auto) 0, Neutrophils # (Auto) 8.6H, Lymphocytes # (Auto) 0.7L, Monocytes # (Auto) 0.4, Eosinophils # (Auto) 0.0, Basophils # (Auto) 0.0, Sodium Level 138, Potassium Level 4.0, Chloride Level 107, Carbon Dioxide Level 22, Anion Gap 9, Blood Urea Nitrogen 9, Creatinine 0.93, Estimat Glomerular Filtration Rate > 60, BUN/ Creatinine Ratio 10, Glucose Level 133H, Calcium Level 8.7 10/27/17 14:09: White Blood Count 10.3, Red Blood Count 3.93L, Hemoglobin 12.0, Hematocrit 35, Mean Corpuscular Volume 89, Mean Corpuscular Hemoglobin 31, Mean Corpuscular Hemoglobin Concent 34, Red Cell Distribution Width 12.7, Platelet Count 179, Mean Platelet Volume 9.8, Neutrophils (%) (Auto) 90H, Lymphocytes (%) (Auto) 7L , Monocytes (%) (Auto) 3, Eosinophils (%) (Auto) 0, Basophils (%) (Auto) 0, Neutrophils # (Auto) 9.3H, Lymphocytes # (Auto) 0.7L, Monocytes # (Auto) 0.3, Eosinophils # (Auto) 0.0, Basophils # (Auto) 0.0, Neutrophils % (Manual) 85, Lymphocytes % (Manual) 8, Monocytes % (Manual) 0, Eosinophils % (Manual) 0, Basophils % (Manual) 0, Band Neutrophils 7, Blood Morphology Comment NORMAL, Sodium Level 135, Potassium Level 3.7, Chloride Level 105, Carbon Dioxide Level 22, Anion Gap 8, Blood Urea Nitrogen 7, Creatinine 0.78, Estimat Glomerular Filtration Rate > 60, BUN/Creatinine Ratio 9, Glucose Level 113H, Calcium Level 9.5, Total Bilirubin 0.8, Aspartate Amino Transf (AST/SGOT) 20, Alanine Aminotransferase (ALT/SGPT) 20, Alkaline Phosphatase 46, Total Protein 7.0, Albumin 3.6 10/27/17 15:00: Urine Color YELLOW, Urine Clarity CLEAR, Urine pH 6, Urine Specific [place] 1.015L, Urine Protein 3+H, Urine Glucose (UA) NEGATIVE, Urine Ketones 2+H, Urine Nitrite NEGATIVE, Urine Bilirubin NEGATIVE, Urine Urobilinogen NORMAL, Urine Leukocyte Esterase 1+H, Urine RBC (Auto) 3+H, Urine RBC 0-2, Urine WBC RARE, Urine Squamous Epithelial Cells 5-10, Urine Crystals NONE, Urine Bacteria TRACE, Urine Casts NONE, Urine Mucus NEGATIVE, Urine Culture Indicated NO Microbiology 10/27/17 C. difficile GDH Antigen & Toxins - Final, Complete Pending Labs Microbiology Date/Time Source Procedure Growth Status 10/27/17 15:00 Stool C. difficile GDH Antigen & Toxins - Final Complete Laboratory Tests 10/25/17 13:45: White Blood Count 6.7, Red Blood Count 4.34, Hemoglobin 13.2, Hematocrit 38, Mean Corpuscular Volume 88, Mean Corpuscular Hemoglobin 30, Mean Corpuscular Hemoglobin Concent 35, Red Cell Distribution Width 12.6, Platelet Count 185, Mean Platelet Volume 9.3, Neutrophils (%) (Auto) 87, Lymphocytes (%) (Auto) 9, Monocytes (%) (Auto) 4, Eosinophils (%) (Auto) 0, Basophils (%) (Auto) 0, Neutrophils # (Auto) 5.8, Lymphocytes # (Auto) 0.6, Monocytes # (Auto) 0.3, Eosinophils # (Auto) 0.0, Basophils # (Auto) 0.0, Neutrophils % (Manual) 61, Lymphocytes % (Manual) 13, Monocytes % (Manual) 10, Eosinophils % (Manual) 0, Basophils % (Manual) 0, Band Neutrophils 16, Blood Morphology Comment NORMAL, Sodium Level 136, Potassium Level 3.7, Chloride Level 105, Carbon Dioxide Level 27, Anion Gap 4, Blood Urea Nitrogen 8, Creatinine 0.76, Estimat Glomerular Filtration Rate > 60, BUN/Creatinine Ratio 11, Glucose Level 98, Calcium Level 8.9 10/26/17 05:35: White Blood Count 9.7, Red Blood Count 3.69, Hemoglobin 11.1, Hematocrit 33, Mean Corpuscular Volume 89, Mean Corpuscular Hemoglobin 30, Mean Corpuscular Hemoglobin Concent 34, Red Cell Distribution Width 12.7, Platelet Count 166, Mean Platelet Volume 9.8, Neutrophils (%) (Auto) 89, Lymphocytes (%) (Auto) 7, Monocytes (%) (Auto) 4, Eosinophils (%) (Auto) 0, Basophils (%) (Auto) 0, Neutrophils # (Auto) 8.6, Lymphocytes # (Auto) 0.7, Monocytes # (Auto) 0.4, Eosinophils # (Auto) 0.0, Basophils # (Auto) 0.0, Sodium Level 138, Potassium Level 4.0, Chloride Level 107, Carbon Dioxide Level 22, Anion Gap 9, Blood Urea Nitrogen 9, Creatinine 0.93, Estimat Glomerular Filtration Rate > 60, BUN/ Creatinine Ratio 10, Glucose Level 133, Calcium Level 8.7 10/27/17 14:09: White Blood Count 10.3, Red Blood Count 3.93, Hemoglobin 12.0, Hematocrit 35, Mean Corpuscular Volume 89, Mean Corpuscular Hemoglobin 31, Mean Corpuscular Hemoglobin Concent 34, Red Cell Distribution Width 12.7, Platelet Count 179, Mean Platelet Volume 9.8, Neutrophils (%) (Auto) 90, Lymphocytes (%) (Auto) 7, Monocytes (%) (Auto) 3, Eosinophils (%) (Auto) 0, Basophils (%) (Auto) 0, Neutrophils # (Auto) 9.3, Lymphocytes # (Auto) 0.7, Monocytes # (Auto) 0.3, Eosinophils # (Auto) 0.0, Basophils # (Auto) 0.0, Neutrophils % (Manual) 85, Lymphocytes % (Manual) 8, Monocytes % (Manual) 0, Eosinophils % (Manual) 0, Basophils % (Manual) 0, Band Neutrophils 7, Blood Morphology Comment NORMAL, Sodium Level 135, Potassium Level 3.7, Chloride Level 105, Carbon Dioxide Level 22, Anion Gap 8, Blood Urea Nitrogen 7, Creatinine 0.78, Estimat Glomerular Filtration Rate > 60, BUN/Creatinine Ratio 9, Glucose Level 113, Calcium Level 9.5, Total Bilirubin 0.8, Aspartate Amino Transf (AST/SGOT) 20, Alanine Aminotransferase (ALT/SGPT) 20, Alkaline Phosphatase 46, Total Protein 7.0, Albumin 3.6 10/27/17 15:00: Urine Color YELLOW, Urine Clarity CLEAR, Urine pH 6, Urine Specific [place] 1.015, Urine Protein 3+, Urine Glucose (UA) NEGATIVE, Urine Ketones 2+, Urine Nitrite NEGATIVE, Urine Bilirubin NEGATIVE, Urine Urobilinogen NORMAL, Urine Leukocyte Esterase 1+, Urine RBC (Auto) 3+, Urine RBC 0-2, Urine WBC RARE, Urine Squamous Epithelial Cells 5-10, Urine Crystals NONE, Urine Bacteria TRACE , Urine Casts NONE, Urine Mucus NEGATIVE, Urine Culture Indicated NO Discharge Home Medications: Active Scripts Active Flagyl (Metronidazole) 500 Mg Tablet 500 Mg PO TID 7 Days Cefdinir 300 Mg Capsule 300 Mg PO BID 7 Days Hydrocodone/Acetaminophen 5/325mg Tablet (Acetaminophen/Hydrocodone Bitart) 1 Tab Tab 1 Tab PO Q4H PRN Reported Losartan Potassium 100 Mg Tablet 100 Mg PO DAILY Instructions to patient/family Please see electronic discharge instructions given to patient. Clinical Quality Measures DVT/VTE Risk/Contraindication: Risk Factor Score Per Nursin RFS Level Per Nursing on Admit: 2=Moderate FELISA CORTES MD Oct 28, 2017 10:10 am
--- NOTE | 2017-10-28 10:14 | Progress Note-Standard ---
Standard Progress Note Progress Notes/Assess & Plan Date Seen by Provider: Oct 28, 2017 Time Seen by Provider: 09:15 Progress/Assessment & Plan Uneventful night. Findings at surgery, intervention details etc. disclosed with the patient. Afebrile and vital signs are stable. Pain control adequate. Passed flatus last night. Incisions dry. That could be advanced and she be discharged soon. 10/27/17:temperature spike to 101.8 last night. Feels warm. Current temperature 99.7. Having diarrhea and passing flatus. Mild abdominal distention. Incisions dry. Antibiotics changed to imipenem to have better coverage. I have had a thorough discussion about the aftereffects of peritonitis, highlighting the possibility of postoperative intra-abdominal/pelvic abscess. I also indicated that and even is less likely to be identified this early during the postoperative period. I have indicated my intention to watch her closely, follow her fever pattern, and obtain a CT scan, should the concern for intra-abdominal abscess increase. 10/28/17: Looks better. Tmax 99.3. No wound infection. No peritoneal signs. No distension. Discussion about delayed intra-abdominal abscess repeated. Could be discharged home on oral antiobiotics and close follow up. If fever unresolved, CT on Tuesday or Tuesday, allowing time for an intra-abdominal abscess to be revealed. Final Diagnosis Iatrogenic small bowel perforation FELISA CORTES MD Oct 28, 2017 10:14 am
[2017-10-28 12:00] VITALS: BP 115/68
--- NOTE | 2017-10-28 13:02 | Progress Note (SOAP) ---
Subjective Date Seen by Provider: Oct 28, 2017 Time Seen by Provider: 13:00 Subjective/Events-last exam Fwup small bowel perforation from polypectomy. Fever not as high so surgery letting go home on oral abx with CT scan planned for first part of next week. Objective Exam Vital Signs Date Time Temp Pulse Resp B/P (MAP) Pulse Ox O2 Delivery O2 Flow Rate FiO2 10/28/17 08:00 99.3 107 18 116/73 (87) 97 Room Air 10/28/17 04:00 99.4 114 18 119/62 (81) 97 Room Air 10/28/17 00:00 97.4 99 18 115/69 (84) 97 Room Air 10/27/17 21:15 98.6 10/27/17 20:02 100.1 10/27/17 19:17 100.7 112 20 127/80 (96) 95 Room Air 10/27/17 16:00 99.5 113 20 126/74 (91) 96 Room Air 10/27/17 14:34 101.7 10/27/17 13:45 102.2 I & O 10/28/17 07:00 Intake Total 2100 ml Output Total 4225 ml Balance -2125 ml Capillary Refill : General Appearance: No Apparent Distress Neck: Supple Respiratory: Lungs Clear Cardiovascular: Regular Rate, Rhythm Gastrointestinal: normal bowel sounds, soft, tenderness (but less) Extremity: Non Tender, No Calf Tenderness, No Pedal Edema Neurologic/Psychiatric: Alert, Oriented x3 Results Lab Laboratory Tests 10/27/17 14:09: White Blood Count 10.3, Red Blood Count 3.93L, Hemoglobin 12.0, Hematocrit 35, Mean Corpuscular Volume 89, Mean Corpuscular Hemoglobin 31, Mean Corpuscular Hemoglobin Concent 34, Red Cell Distribution Width 12.7, Platelet Count 179, Mean Platelet Volume 9.8, Neutrophils (%) (Auto) 90H, Lymphocytes (%) (Auto) 7L , Monocytes (%) (Auto) 3, Eosinophils (%) (Auto) 0, Basophils (%) (Auto) 0, Neutrophils # (Auto) 9.3H, Lymphocytes # (Auto) 0.7L, Monocytes # (Auto) 0.3, Eosinophils # (Auto) 0.0, Basophils # (Auto) 0.0, Neutrophils % (Manual) 85, Lymphocytes % (Manual) 8, Monocytes % (Manual) 0, Eosinophils % (Manual) 0, Basophils % (Manual) 0, Band Neutrophils 7, Blood Morphology Comment NORMAL, Sodium Level 135, Potassium Level 3.7, Chloride Level 105, Carbon Dioxide Level 22, Anion Gap 8, Blood Urea Nitrogen 7, Creatinine 0.78, Estimat Glomerular Filtration Rate > 60, BUN/Creatinine Ratio 9, Glucose Level 113H, Calcium Level 9.5, Total Bilirubin 0.8, Aspartate Amino Transf (AST/SGOT) 20, Alanine Aminotransferase (ALT/SGPT) 20, Alkaline Phosphatase 46, Total Protein 7.0, Albumin 3.6 10/27/17 15:00: Urine Color YELLOW, Urine Clarity CLEAR, Urine pH 6, Urine Specific Alba 1.015L, Urine Protein 3+H, Urine Glucose (UA) NEGATIVE, Urine Ketones 2+H, Urine Nitrite NEGATIVE, Urine Bilirubin NEGATIVE, Urine Urobilinogen NORMAL, Urine Leukocyte Esterase 1+H, Urine RBC (Auto) 3+H, Urine RBC 0-2, Urine WBC RARE, Urine Squamous Epithelial Cells 5-10, Urine Crystals NONE, Urine Bacteria TRACE, Urine Casts NONE, Urine Mucus NEGATIVE, Urine Culture Indicated NO Microbiology 10/27/17 C. difficile GDH Antigen & Toxins - Final, Complete Assessment/Plan Assessment/Plan Assess & Plan/Chief Complaint 1. Acute Small Bowel Perforation from polypectomy during limited flexible sigmoidoscopy--passing gas and frequent loose stools, home on oral abx per surgery 2. Fever--lab okay and is not as high so home on oral abx with CT scan of abdomen/pelvis early next week Clinical Quality Measures DVT/VTE Risk/Contraindication: Risk Factor Score Per Nursin RFS Level Per Nursing on Admit: 2=Moderate CHIIKS MAR DO Oct 28, 2017 1:02 pm
[2017-10-28 13:10] VITALS: BP 115/68
[2017-10-28] MEDS ORDERED: SCOPOLAMINE PATCH REMOVAL TP SCH (13:59)
--- NOTE | 2017-11-01 08:00 | Physician Query Clarification ---
PQ-Accidental Op Laceration Admission/Discharge Admission Date: Oct 25, 2017 at 12:52 Discharge Date: Oct 28, 2017 at 13:30 Operative Report: iatrogenic perforation of the small bowel, resulting from endoscopic polypectomy , performed 24 hrs ago Question: Should this iatrogenic perforation of the small bowel be classified as : Please document a response below. PHYSICIAN RESPONSE Classified as: A complication of the procedure In responding to this query, please exercise your independent professional judgment. The purpose of this communication is to more accurately reflect the complexity of your patients condition. The fact that a question is asked does not imply that any particular answer is desired or expected. Thank you for your timely response to this clarification. Requestors name: Jeimy [employer] THIS PHYSICIAN QUERY FORM IS A PERMANENT PART OF THE MEDICAL RECORD MARIA C URIAS Nov 01, 2017 08:00 FELISA CORTES MD Nov 01, 2017 16:53
--- OUTSIDE RECORDS SUMMARY | 2017-11-01 10:36 | XMS REPORT | Continuity of Care Document ---
Author Author [facility] Organization [facility] Address Unknown Phone Unavailable Allergies Active Description Code Type Severity Reaction Onset Reported/Identified Relationship to Patient Clinical Status Yes morphine [id number] Drug Allergy Unknown RASH...CAN TAKE 10/24/2017 Medications There is no data. Problems Date [...] 11/30/2013 JOSE ALBERTO MONTGOMERY DO Ot V06.1 [id number], COMBINED [ 11/30/2013 JOSE ALBERTO MONTGOMERY DO Ot V27.0 DELIVER-SINGLE LIVEBORN 11/30/2013 JOSE ALBERTO MONTGOMERY DO Ot V45.72 ACQRD ABSENCE INTESTINE - LARGE/SMALL 10/18/2017 SOPHIA SWIFT, FELISA Valero Ot K62.5 HEMORRHAGE OF ANUS AND RECTUM 10/18/2017 FELISA CORTES MD Ot Z01.818 ENCOUNTER FOR OTHER PREPROCEDURAL EXAMIN 10/18/2017 FELISA CORTES MD Ot K62.5 HEMORRHAGE OF ANUS AND RECTUM 10/18/2017 FELISA CORTES MD Ot Z01.818 ENCOUNTER FOR OTHER PREPROCEDURAL EXAMIN 10/18/2017 FEILSA CORTES MD Ot K62.5 HEMORRHAGE OF ANUS AND RECTUM 10/18/2017 FELISA CORTES MD Ot Z01.818 ENCOUNTER FOR OTHER PREPROCEDURAL EXAMIN 10/24/2017 FELISA CORTES MD, Ot I10 ESSENTIAL (PRIMARY) HYPERTENSION 10/24/2017 FELISA CORTES MD, Ot K63.89 OTHER SPECIFIED DISEASES OF INTESTINE 10/26/2017 FELISA CORTES MD, Ot 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79 VACUUM EXTRACT DEL NEC 11/28/2013 Results Test Result Range Urine beta human chorionic gonadotropin (hCG) measurement - 10/24/17 08:22 Urine beta human chorionic gonadotropin (hCG) measurement NEGATIVE NEGATIVE Complete blood count (CBC) with automated white blood cell (WBC) differential - 10/25/17 13:45 Blood leukocytes automated count (number/volume) 6.7 10*3/uL 4.3-11.0 Blood erythrocytes automated count (number/volume) 4.34 10*6/uL 4.35-5.85 Venous blood hemoglobin measurement (mass/volume) 13.2 g/dL 11.5-16.0 Blood hematocrit (volume fraction) 38 % 35-52 Automated erythrocyte mean corpuscular volume 88 [foz_us] 80-99 Automated erythrocyte mean corpuscular hemoglobin (mass per erythrocyte) 30 pg 25-34 Automated erythrocyte mean corpuscular hemoglobin concentration measurement ( mass/volume) 35 g/dL 32-36 Automated erythrocyte distribution width ratio 12.6 % 10.0-14.5 Automated blood platelet count (count/volume) 185 10*3/uL 130-400 Automated blood platelet mean volume measurement 9.3 [foz_us] 7.4-10.4 Automated blood neutrophils/100 leukocytes 87 % 42-75 Automated blood lymphocytes/100 leukocytes 9 % 12-44 Blood monocytes/100 leukocytes 4 % 0-12 Automated blood eosinophils/100 leukocytes 0 % 0-10 Automated blood basophils/100 leukocytes 0 % 0-10 Blood neutrophils automated count (number/volume) 5.8 10*3 1.8-7.8 Blood lymphocytes automated count (number/volume) 0.6 10*3 1.0-4.0 Blood monocytes automated count (number/volume) 0.3 10*3 0.0-1.0 Automated eosinophil count 0.0 10*3/uL 0.0-0.3 Automated blood basophil count (count/volume) 0.0 10*3/uL 0.0-0.1 Complete blood count (CBC) with automated white blood cell (WBC) differential - 10/26/17 05:35 Blood leukocytes automated count (number/volume) 9.7 10*3/uL 4.3-11.0 Blood erythrocytes automated count (number/volume) 3.69 10*6/uL 4.35-5.85 Venous blood hemoglobin measurement (mass/volume) 11.1 g/dL 11.5-16.0 Blood hematocrit (volume fraction) 33 % 35-52 Automated erythrocyte mean corpuscular volume 89 [foz_us] 80-99 Automated erythrocyte mean corpuscular hemoglobin (mass per erythrocyte) 30 pg 25-34 Automated erythrocyte mean corpuscular hemoglobin concentration measurement ( mass/volume) 34 g/dL 32-36 Automated erythrocyte distribution width ratio 12.7 % 10.0-14.5 Automated blood platelet count (count/volume) 166 10*3/uL 130-400 Automated blood platelet mean volume measurement 9.8 [foz_us] 7.4-10.4 Automated blood neutrophils/100 leukocytes 89 % 42-75 Automated blood lymphocytes/100 leukocytes 7 % 12-44 Blood monocytes/100 leukocytes 4 % 0-12 Automated blood eosinophils/100 leukocytes 0 % 0-10 Automated blood basophils/100 leukocytes 0 % 0-10 Blood neutrophils automated count (number/volume) 8.6 10*3 1.8-7.8 Blood lymphocytes automated count (number/volume) 0.7 10*3 1.0-4.0 Blood monocytes automated count (number/volume) 0.4 10*3 0.0-1.0 Automated eosinophil count 0.0 10*3/uL 0.0-0.3 Automated blood basophil count (count/volume) 0.0 10*3/uL 0.0-0.1 Whole blood basic metabolic panel - 10/26/17 05:35 Serum or plasma sodium measurement (moles/volume) 138 mmol/L 135-145 Serum or plasma potassium measurement (moles/volume) 4.0 mmol/L 3.6-5.0 Serum or plasma chloride measurement (moles/volume) 107 mmol/L 98-107 Carbon dioxide 22 mmol/L 21-32 Serum or plasma anion gap determination (moles/volume) 9 mmol/L 5-14 Serum or plasma urea nitrogen measurement (mass/volume) 9 mg/dL 7-18 Serum or plasma creatinine measurement (mass/volume) 0.93 mg/dL 0.60-1.30 Serum or plasma urea nitrogen/creatinine mass ratio 10 NRG Serum or plasma creatinine measurement with calculation of estimated glomerular filtration rate > NRG Serum or plasma glucose measurement (mass/volume) 133 mg/dL 70-105 Serum or plasma calcium measurement (mass/volume) 8.7 mg/dL 8.5-10.1 Encounters ACCT No. Visit Date/Time Discharge Status Pt. Type Provider Facility Loc./Unit Complaint [id number] 10/25/2017 12:52:00 10/28/2017 13:30:00 DIS Inpatient FELISA CORTES MD [facility] 4TH ACUTE ABDOMINAL PAIN [id number] 10/25/2017 12:00:00 10/25/2017 23:59:59 CLS Outpatient FELISA CORTES MD [facility] RAD ACUTE ABD PAIN [id number] 10/24/2017 08:11:00 10/24/2017 10:15:00 DIS Outpatient FELISA CORTES MD [facility] ENDO RECTAL BLEEDING [id number] 10/18/2017 08:30:00 10/18/2017 09:09:00 DIS Outpatient FELISA CORTES MD [facility] PREOP FLEX SIG [id number] 11/28/2013 13:52:00 11/30/2013 10:50:00 DIS Inpatient JOSE ALBERTO MONTGOMERY DO [facility] WS INDUCED HYPERTENSION 04/29/20 09/21/2017 16:16:54 09/21/2017 23:59:59 [facility] Outpatient Renee Singh
== END 2017-10-28 13:30 | disposition home or self-care (01) | DRG 907 ==
LOC: EDSTATUS 10:32 → OBSVTOIN 12:52 → INTOOBSV 12:52 → 4TH 12:52 → UNDOADMOB 12:52 → 4TH 12:52 → UNDODISIN 10-28 13:30
PROVIDERS: ADMIT Surgery; ATTEND Surgery
PROC: 0DQ84ZZ Repair Small Intestine, Percutaneous Endoscopic Approach (ICD-10-PCS; principal; 2017-10-25 14:01)
DX: K91.71 Accidental puncture and laceration of a digestive system organ or structure during a digestive system procedure (principal); K65.9 Peritonitis, unspecified; R19.7 Diarrhea, unspecified; R50.9 Fever, unspecified; I10 Essential (primary) hypertension; K59.09 Other constipation
CPT/HCPCS: 36415; 71046; 80048; 80053; 81000; 85007; 85025; 85027; 87040; 87324; 87449; 94664

== ENCOUNTER → 2017-10-25 | Outpatient (CLI) | payer OTHER ==
[~2017-10-25] MED LIST changes: +IOHEXOL 350 MG/ML 100 ML (OMNIPAQUE 350) VIAL IV ONE; +LACTATED RINGERS 1,000 ML IV ONE; +LACTATED RINGERS 1,000 ML IV SCH; +NS 250 ML (IVPB) BAG IV ONE; +ONDANSETRON 4 MG/2 ML (SDV) Z0FRAN IVP ONE; +ONDANSETRON 4 MG/2 ML (SDV) Z0FRAN ONE; +RECEIVED CONTRAST (Hold Metformin) IV SCH; +fentaNYL INJECTION 100 MCG/2 ML AMP IVP ONE; +fentaNYL INJECTION 100 MCG/2 ML AMP ONE
[2017-10-25 12:35] VITALS: BP 120/74
--- NOTE | 2017-10-25 13:03 | Diagnostic Imaging Report ---
PROCEDURE: CT abdomen and pelvis with contrast. TECHNIQUE: Multiple contiguous axial images were obtained through the abdomen and pelvis after administration of intravenous contrast. INDICATION: Patient is status post total colectomy with ileorectal anastomosis in 2007. The patient had recent endoscopy and polypectomy. Patient now complains of abdominal pain. COMPARISON: No prior studies are available for comparison. FINDINGS: The lung bases are clear. Note is made of pneumoperitoneum. Free air is noted in the anti-dependent portions of the abdomen and below the hemidiaphragms. There is some free fluid present as well in the right paracolic gutter as well as within the pelvis. Postsurgical changes in the pelvis are identified. There appears to be an anastomosis at the ileorectal location. Postop changes of total colectomy are seen. Bowel loops are normal in caliber. No obstruction is identified. No discrete fluid collection is identified. The liver, gallbladder, and spleen are unremarkable. The pancreas, adrenal glands, and kidneys are unremarkable. Aorta is nonaneurysmal. Uterus and bladder are unremarkable. IMPRESSION: 1. Pneumoperitoneum, consistent with perforation of a hollow viscus. There is a small amount of free fluid in the right gutter and within the pelvis. No focal fluid collection or evidence of bowel obstruction is identified. No other significant abnormality is detected. Dr. Hadley was notified of these results prior to this dictation. Dictated by: Dictated on workstation # [id number]
== END ==
LOC: RAD 12:00
PROVIDERS: ATTEND Surgery
DX: K66.8 Other specified disorders of peritoneum (principal); Z90.49 Acquired absence of other specified parts of digestive tract
CPT/HCPCS: 74177